=== PATIENT | male | born 1980 | race Native Hawaiian/Other Pacific Islander ===

== ENCOUNTER 2019-08-31 17:24 | Emergency (ER) | payer OTHER ==
[~2019-08-31] VITALS: Ht 180.3 cm; Wt 104.3 kg
[2019-08-31] MEDS ORDERED: PROZAC10 MG PO (18:06)
[2019-08-31] MEDS ORDERED: DIVA500T2 (18:07)
[2019-08-31 20:38] VITALS: BP 147/96; TEMP 99
== END 2019-08-31 20:39 | disposition home or self-care (01) ==
LOC: ED 17:24
PROC: 2W3CX1Z Immobilization of Right Lower Arm using Splint (ICD-10-PCS; principal; 2019-08-31)
DX: S52.501A Unspecified fracture of the lower end of right radius, initial encounter for closed fracture (principal); W19.XXXA Unspecified fall, initial encounter; Y92.69 Other specified industrial and construction area as the place of occurrence of the external cause
CPT/HCPCS: 96372; 99284; J1885

== ENCOUNTER 2020-05-08 09:43 | Emergency (ER) | payer OTHER ==
[~2020-05-08] VITALS: Ht 180.3 cm; Wt 104.3 kg
[~2020-05-08 09:43] MED LIST: DIVA500T2; PROZAC10 MG PO
[2020-05-08 10:19] LABS: PLATELET COUNT 278 K/uL (142-355)
[2020-05-08 10:29] LABS: POTASSIUM 3.6 mmol/L (3.6-5.2)
[2020-05-10 22:52] VITALS: BP 126/64; TEMP 98.9
== END 2020-05-10 22:53 | disposition other institution (70) ==
LOC: ED 09:43
PROVIDERS: Emergency Medicine Emergency Medical Services
DX: R45.851 Suicidal ideations (principal); F32.89 Other specified depressive episodes
CPT/HCPCS: 36415; 80053; 80307; 80320; 80329; 81000; 85027; 93005; 99285

== ENCOUNTER 2021-05-20 21:08 | Emergency (ER) | payer OTHER ==
[~2021-05-20] VITALS: Ht 177.8 cm; Wt 108.9 kg
[2021-05-20 23:04] LABS: PLATELET COUNT 287 K/uL (142-355)
[2021-05-20 23:09] LABS: POTASSIUM 3.4 mmol/L (3.6-5.2)
[2021-05-20 23:55] VITALS: BP 129/75; TEMP 97.5
== END 2021-05-21 | disposition home or self-care (01) ==
LOC: ED 21:08
PROVIDERS: Family Medicine
DX: F20.89 Other schizophrenia (principal); F19.90 Other psychoactive substance use, unspecified, uncomplicated
CPT/HCPCS: 36415; 80053; 80307; 85027; 99283

== ENCOUNTER 2021-08-26 17:24 | Emergency (ER) | payer OTHER ==
[~2021-08-26] VITALS: Ht 177.8 cm; Wt 108.9 kg
[2021-08-26 18:25] LABS: PLATELET COUNT 298 K/uL (142-355)
[2021-08-26 18:35] LABS: POTASSIUM 3.5 mmol/L (3.6-5.2)
[2021-08-27 07:42] LABS: PLATELET COUNT 279 K/uL (142-355)
[2021-08-27 21:00] VITALS: BP 139/94; TEMP 98.6
== END 2021-08-28 21:25 | disposition still patient (30) ==
LOC: ED 17:24
PROVIDERS: Emergency Medicine
DX: R45.851 Suicidal ideations (principal); F20.89 Other schizophrenia; Z20.822 Contact with and (suspected) exposure to COVID-19
CPT/HCPCS: 36415; 80048; 80053; 80307; 80320; 80329; 81000; 85027; 87635; 93005; 99285; U0003

== ENCOUNTER 2021-10-15 19:07 | Emergency (ER) | payer OTHER ==
[~2021-10-15] VITALS: Ht 180.3 cm; Wt 95.3 kg
[2021-10-15] MEDS ORDERED: ARIPIPRAZOLE10 MG PO (19:32)
[2021-10-15 20:11] LABS: PLATELET COUNT 264 K/uL (142-355)
[2021-10-15 20:19] LABS: POTASSIUM 4.5 mmol/L (3.6-5.2)
[2021-10-15 21:00] VITALS: BP 140/74; TEMP 99.1
== END 2021-10-15 21:00 | disposition home or self-care (01) ==
LOC: ED 19:07
PROVIDERS: Emergency Medicine
PROC: 0H91XZZ Drainage of Face Skin, External Approach (ICD-10-PCS; principal; 2021-10-15)
DX: L03.211 Cellulitis of face (principal)
CPT/HCPCS: 36415; 80053; 85027; 87070; 87077; 87185; 87186; 87205; 96372; 99283; J1885

== ENCOUNTER 2021-10-16 20:28 | Emergency (ER) | payer OTHER ==
[~2021-10-16] VITALS: Ht 180.3 cm; Wt 95.3 kg
[~2021-10-16 20:28] MED LIST changes: +ARIPIPRAZOLE10 MG PO
[2021-10-16 21:40] VITALS: BP 128/78; TEMP 98.4
== END 2021-10-16 21:40 | disposition home or self-care (01) ==
LOC: ED 20:28
DX: Z51.89 Encounter for other specified aftercare (principal); Z98.890 Other specified postprocedural states; L02.01 Cutaneous abscess of face
CPT/HCPCS: 99282

== ENCOUNTER 2022-03-29 13:49 | Emergency (ER) | payer OTHER ==
[~2022-03-29] VITALS: Ht 180.3 cm; Wt 104.3 kg
[2022-03-29 14:01] VITALS: TEMP 99
[2022-03-29 14:27] LABS: PLATELET COUNT 288 K/uL (142-355)
[2022-03-29 14:35] LABS: POTASSIUM 3.5 mmol/L (3.6-5.2)
[2022-03-29 18:43] VITALS: BP 133/84
== END 2022-03-29 18:47 | disposition home or self-care (01) ==
LOC: ED 13:49
PROVIDERS: Emergency Medicine
DX: R45.851 Suicidal ideations (principal); Z91.51 Personal history of suicidal behavior; R82.5 Elevated urine levels of drugs, medicaments and biological substances; S90.512A Abrasion, left ankle, initial encounter; S90.511A Abrasion, right ankle, initial encounter; S90.812A Abrasion, left foot, initial encounter; S90.811A Abrasion, right foot, initial encounter; Z20.822 Contact with and (suspected) exposure to COVID-19; W45.8XXA Other foreign body or object entering through skin, initial encounter; Y92.89 Other specified places as the place of occurrence of the external cause
CPT/HCPCS: 80053; 80143; 80179; 80307; 80320; 81002; 85027; 87635; 93005; 99285; U0003

== ENCOUNTER 2022-03-30 17:06 | Emergency (ER) | payer OTHER ==
[~2022-03-30] VITALS: Ht 180.3 cm; Wt 104.3 kg
[2022-03-30 17:57] LABS: PLATELET COUNT 263 K/uL (142-355)
[2022-03-30 18:06] LABS: POTASSIUM 3.4 mmol/L (3.6-5.2)
[2022-03-30 21:45] LABS: POTASSIUM 3.1 mmol/L (3.6-5.2)
[2022-03-31 01:49] LABS: PLATELET COUNT 246 K/uL (142-355)
[2022-03-31 01:55] LABS: POTASSIUM 3.4 mmol/L (3.6-5.2)
[2022-04-01 07:45] VITALS: BP 122/64; TEMP 97.2
== END 2022-04-01 15:04 | disposition home or self-care (01) ==
LOC: ED 17:06
PROVIDERS: Emergency Medicine
DX: T42.6X1A Poisoning by other antiepileptic and sedative-hypnotic drugs, accidental (unintentional), initial encounter (principal); F19.10 Other psychoactive substance abuse, uncomplicated; F17.210 Nicotine dependence, cigarettes, uncomplicated; X58.XXXA Exposure to other specified factors, initial encounter; Y92.89 Other specified places as the place of occurrence of the external cause; Z20.822 Contact with and (suspected) exposure to COVID-19
CPT/HCPCS: 36415; 80053; 80143; 80179; 80320; 85027; 87635; 99285; U0003